=== PATIENT | male | born 1990 | race Caucasian/White ===

== ENCOUNTER 2023-04-14 14:29 | Emergency (ER) | payer SELFPAY ==
[2023-04-14 14:40] VITALS: BP 122/76; PULSE 90; RESP 18; TEMP 98; BMI 24.4
[2023-04-14] MEDS ORDERED: ACETAMINOPHEN 325 MG TABLET (FP) PO ONE (15:21)
[2023-04-14] MEDS ORDERED: ACETAMINOPHEN 325 MG TABLET (FP) ONE (15:35)
== END 2023-04-14 17:50 | disposition home or self-care (01) ==
LOC: JER 14:29
DX: R20.2 Paresthesia of skin (principal); R51.9 Headache, unspecified; R68.84 Jaw pain; W22.8XXA Striking against or struck by other objects, initial encounter
CPT/HCPCS: 70450-TC; 70486-TC; 99284-25